=== PATIENT | male | born 1965 | race Caucasian/White ===

== ENCOUNTER 2022-05-24 09:06 | Emergency (ER) | payer MEDICAID ==
[~2022-05-24] VITALS: Ht 188 cm; Wt 111.8 kg
[~2022-05-24 09:06] MED LIST: CLIN300C33 PO; HYDR-3972 PO; NAPR-56 PO; VENL37.55 PO
[2022-05-24 09:09] VITALS: BP 171/101
[2022-05-24] MEDS ORDERED: ketorolac tromethamine 15mg/ml inj. IM ONE (10:15)
[2022-05-24] MEDS ORDERED: cyclobenzaprine 10mg tablet PO ONE (10:15)
[2022-05-24 10:34] LABS: CLARITY,URINE CLEAR (Clear); COLOR,URINE YELLOW (Yellow); GLUCOSE, URINE NEGATIVE (Neg); KETONES,URINE TRACE mg/dl (Neg); LEUKOCYTE ESTERASE ,URINE NEGATIVE (Neg); NITRITES, URINE NEGATIVE (Neg); OCCULT BLOOD,URINE NEGATIVE (Neg); PROTEIN,URINE NEGATIVE (Neg); UROBILINOGEN,URINE 0.2 E.U/dL (0.2-1.0)
[2022-05-24 10:36] LABS: UA COLLECTION TYPE CLN CATCH MIDSTREAM
[2022-05-24 10:51] LABS: HEMOGLOBIN 13.9 g/dl (14.0-17.9)
[2022-05-24 10:53] LABS: BASOPHILS # (AUTO) 0.1 X10'3 (0-0.2); BASOPHILS % (AUTO) 0.7 % (0-1); EOSINOPHILS # (AUTO) 0.4 X10'3 (0-0.9); EOSINOPHILS % (AUTO) 4.4 % (0-6); HEMATOCRIT 41.6 % (42.0-52.0); LYMPHOCYTES # (AUTO) 2.6 X10'3 (1.1-4.8); LYMPHOCYTES % (AUTO) 26.1 % (21-51); MEAN CORPUSCULAR HEMOGLOBIN 27.4 PG (27.0-31.0); MEAN CORPUSCULAR HGB CONC 33.3 g/dL (33.0-36.5); MEAN CORPUSCULAR VOLUME 82.4 FL (78-98); MEAN PLATELET VOLUME 6.9 FL (7.4-10.4); MONOCYTES # (AUTO) 1.2 X10'3 (0-0.9); MONOCYTES % (AUTO) 11.8 % (2-12); NEUTROPHILS # (AUTO) 5.6 X10'3 (1.8-7.7); PLATELET COUNT 276 X10'3 (140-440); RED BLOOD COUNT 5.05 X10'6 (4.70-6.10); RED CELL DISTRIBUTION WIDTH 15.4 % (11.5-14.5); WHITE BLOOD COUNT 9.8 X10'3 (4.5-11.0)
[2022-05-24 11:14] LABS: ALANINE AMINOTRANSFERASE 21 U/L (12-78); ALBUMIN 3.6 G/DL (3.4-5.0); ALKALINE PHOSPHATASE 72 IU/L (46-116); ANION GAP 9 (8-16); ASPARTATE AMINO TRANSFERASE 20 U/L (10-37); BILIRUBIN,TOTAL 0.4 MG/DL (0.1-1.0); BLOOD UREA NITROGEN 18 MG/DL (7-18); CALCIUM 8.5 MG/DL (8.5-10.1); CHLORIDE 103 MMOL/L (99-107); CREATININE 0.72 MG/DL (0.60-1.10); GLUCOSE 97 MG/DL (70-104); POTASSIUM 3.9 MMOL/L (3.5-5.1); SODIUM 139 MMOL/L (135-145); TOTAL PROTEIN 7.1 G/DL (6.4-8.2); eGFR > 90 ML/MIN
[2022-05-24] MEDS ORDERED: ORPH100T2 PO (11:46)
== END 2022-05-24 12:06 | disposition home or self-care (01) ==
LOC: ER 09:07
DX: M54.59 Other low back pain (principal); Z20.822 Contact with and (suspected) exposure to COVID-19; E86.0 Dehydration; M79.10 Myalgia, unspecified site; R53.83 Other fatigue
CPT/HCPCS: 36415; 80053; 81003; 85025; 87502; 87503; 87635; 96372; 99283; C9803; J1885

== ENCOUNTER 2022-06-15 16:10 | Emergency (ER) | payer MEDICAID ==
[~2022-06-15] VITALS: Ht 190.5 cm; Wt 129.1 kg
[~2022-06-15 16:10] MED LIST changes: +ORPH100T2 PO
[2022-06-15 17:04] VITALS: BP 134/94
== END 2022-06-15 21:45 | disposition left against medical advice (07) ==
LOC: ER 16:11
DX: F29 Unspecified psychosis not due to a substance or known physiological condition (principal); Z53.21 Procedure and treatment not carried out due to patient leaving prior to being seen by health care provider

== ENCOUNTER 2022-07-07 21:09 | Emergency (ER) | payer MEDICAID ==
[~2022-07-07] VITALS: Ht 190.5 cm; Wt 129.1 kg
[2022-07-08] MEDS ORDERED: erythromycin ophthalmic ointment 1gm tube LEFTEYE ONE (01:55)
[2022-07-08] MEDS ORDERED: ERYT1OIN6 LEFTEYE (02:04)
[2022-07-08 02:24] VITALS: BP 135/92
== END 2022-07-08 02:27 | disposition home or self-care (01) ==
LOC: ER 21:10
DX: M79.671 Pain in right foot (principal); M79.672 Pain in left foot; H10.32 Unspecified acute conjunctivitis, left eye; J44.9 Chronic obstructive pulmonary disease, unspecified
CPT/HCPCS: 99283

== ENCOUNTER 2022-07-23 21:09 | Emergency (ER) | payer MEDICAID ==
[~2022-07-23] VITALS: Ht 191.8 cm; Wt 122.7 kg
[~2022-07-23 21:09] MED LIST changes: +ERYT1OIN6 LEFTEYE
[2022-07-23 21:30] VITALS: BP 153/84
[2022-07-23] MEDS ORDERED: SULF1TAB45 PO (22:49)
== END 2022-07-23 23:11 | disposition home or self-care (01) ==
LOC: ER 21:10
DX: B99.8 Other infectious disease (principal); L53.8 Other specified erythematous conditions
CPT/HCPCS: 99283

== ENCOUNTER 2022-10-03 19:17 | Emergency (ER) | payer MEDICAID ==
[~2022-10-03] VITALS: Ht 190.5 cm; Wt 112.7 kg
[~2022-10-03 19:17] MED LIST changes: -ERYT1OIN6 LEFTEYE
--- NOTE | 2022-10-03 21:41 | NUR ---
CHARGE NURSE AWARE OF GENERAL ASSESSMENT NEEDED.
[2022-10-03 21:55] VITALS: BP 130/82
== END 2022-10-03 22:09 | disposition home or self-care (01) ==
LOC: ER 19:18
DX: F10.920 Alcohol use, unspecified with intoxication, uncomplicated (principal); F32.A Depression, unspecified; Z59.00 Homelessness unspecified; J44.9 Chronic obstructive pulmonary disease, unspecified; Y90.9 Presence of alcohol in blood, level not specified
CPT/HCPCS: 99283

== ENCOUNTER 2022-10-16 11:52 | Emergency (ER) | payer MEDICAID ==
[~2022-10-16] VITALS: Ht 190.5 cm; Wt 109.1 kg
[~2022-10-16 11:52] MED LIST changes: -ORPH100T2 PO; +ORPH100T4 PO
[2022-10-16 12:18] VITALS: BP 127/91
== END 2022-10-16 15:03 | disposition left against medical advice (07) ==
LOC: ER 11:53
DX: S81.001A Unspecified open wound, right knee, initial encounter (principal); Z53.21 Procedure and treatment not carried out due to patient leaving prior to being seen by health care provider; R19.7 Diarrhea, unspecified; R53.83 Other fatigue; X58.XXXA Exposure to other specified factors, initial encounter; Y93.89 Activity, other specified; Y92.89 Other specified places as the place of occurrence of the external cause; Y99.8 Other external cause status
CPT/HCPCS: 93005; 99281

== ENCOUNTER 2023-02-15 16:49 | Emergency (ER) | payer MEDICAID ==
[~2023-02-15] VITALS: Ht 190.5 cm; Wt 99.4 kg
[2023-02-15 17:21] VITALS: BP 126/86; PULSE 95; RESP 18; TEMP 98.4; O2SAT 98
[2023-02-15] MEDS ORDERED: amoxicillin 250mg capsule PO ONE (18:30)
[2023-02-15] MEDS ORDERED: AMOX-101 PO (18:40)
== END 2023-02-15 19:10 | disposition home or self-care (01) ==
LOC: ER 16:50
DX: K08.89 Other specified disorders of teeth and supporting structures (principal); I10 Essential (primary) hypertension; F32.A Depression, unspecified; Z86.19 Personal history of other infectious and parasitic diseases; Z72.89 Other problems related to lifestyle; Z79.2 Long term (current) use of antibiotics; Z79.899 Other long term (current) drug therapy; Z98.818 Other dental procedure status
CPT/HCPCS: 99283; 99284

== ENCOUNTER 2023-12-03 09:27 | Inpatient (IN) | payer MEDICAID ==
[~2023-12-03] VITALS: Ht 191.8 cm; Wt 99.1 kg
[~2023-12-03 09:27] MED LIST changes: -CLIN300C33 PO; -VENL37.55 PO; +VENL37.58 PO; +[UNRECOGNIZED DRUG - CODE] PO
[2023-12-03 11:26] LABS: BASOPHILS # (AUTO) 0.1 X10'3 (0-0.2); BASOPHILS % (AUTO) 1.1 % (0-1); EOSINOPHILS # (AUTO) 0.2 X10'3 (0-0.9); EOSINOPHILS % (AUTO) 1.9 % (0-6); HEMATOCRIT 44.6 % (42.0-52.0); HEMOGLOBIN 14.6 g/dl (14.0-17.9); LYMPHOCYTES # (AUTO) 2.3 X10'3 (1.1-4.8); LYMPHOCYTES % (AUTO) 26.5 % (21-51); MEAN CORPUSCULAR HGB CONC 32.8 g/dL (33.0-36.5); MEAN CORPUSCULAR VOLUME 85.3 FL (78-98); MONOCYTES # (AUTO) 1.1 X10'3 (0-0.9); MONOCYTES % (AUTO) 12.3 % (2-12); NEUTROPHILS # (AUTO) 5.1 X10'3 (1.8-7.7); NEUTROPHILS % (AUTO) 58.2 % (42-75); PLATELET COUNT 342 X10'3 (140-440); RED BLOOD COUNT 5.23 X10'6 (4.70-6.10); RED CELL DISTRIBUTION WIDTH 15.7 % (11.5-14.5); WHITE BLOOD COUNT 8.7 X10'3 (4.5-11.0)
[2023-12-03 11:55] LABS: ALANINE AMINOTRANSFERASE 13 U/L (12-78); ALBUMIN 3.7 G/DL (3.4-5.0); ALBUMIN/GLOBULIN RATIO 0.9 (1.1-1.5); ALKALINE PHOSPHATASE 78 IU/L (46-116); ANION GAP 7 (8-16); ASPARTATE AMINO TRANSFERASE 17 U/L (10-37); BILIRUBIN,TOTAL 0.3 MG/DL (0.1-1.0); BLOOD UREA NITROGEN 16 MG/DL (7-18); BUN/CREATININE RATIO 25.4 (10.0-20.0); CHLORIDE 97 MMOL/L (99-107); CREATININE 0.63 MG/DL (0.60-1.10); GLUCOSE 103 MG/DL (70-104); POTASSIUM 4.2 MMOL/L (3.5-5.1); SODIUM 132 MMOL/L (135-145); TOTAL CARBON DIOXIDE 27.6 MMOL/L (24-32); TOTAL PROTEIN 7.9 G/DL (6.4-8.2); eCRCL 150 ML/MIN; eGFR > 90 ML/MIN
[2023-12-03] MEDS: morphine 2 MG/ML inj. syringe IV PRN ×2 (13:08→18:00)
[2023-12-03] MEDS ORDERED: magnesium hydroxide 30ml (MOM) UD suspension PO PRN (14:45)
[2023-12-03] MEDS ORDERED: acetaminophen 325mg tablet PO PRN (14:45)
[2023-12-03] MEDS ORDERED: ondansetron/PF 4mg/2ml inj IV PRN (14:45)
[2023-12-03] MEDS ORDERED: morphine 2 MG/ML inj. syringe IV PRN (14:45)
[2023-12-03 15:31] LABS: C-REACTIVE PROTEIN 0.06 MG/DL (0.0-0.5)
[2023-12-03] MEDS: CefTRIAXone 2gm/D5W 50ml BAG 50 ML IV ONE (15:52)
[2023-12-03] MEDS ORDERED: iohexol 300mg/ml 100ml inj. ONE (15:55)
[2023-12-03] MEDS ORDERED: vancomycin/NS 1 GM ADD-VANTAGE 250 ML IV SCH (16:00)
[2023-12-03 16:35] LABS: BILIRUBIN,URINE NEGATIVE (Neg); CLARITY,URINE CLEAR (Clear); COLOR,URINE YELLOW (Yellow); GLUCOSE, URINE NEGATIVE (Neg); KETONES,URINE NEGATIVE (Neg); LEUKOCYTE ESTERASE ,URINE NEGATIVE (Neg); NITRITES, URINE NEGATIVE (Neg); OCCULT BLOOD,URINE NEGATIVE (Neg); PROTEIN,URINE NEGATIVE (Neg); UROBILINOGEN,URINE 0.2 E.U/dL (0.2-1.0)
[2023-12-03 16:37] LABS: URINE AMPHETAMINE SCREEN NEGATIVE (Neg); URINE BARBITUATE SCREEN NEGATIVE (Neg); URINE BENZODIAZEPINES SCREEN NEGATIVE (Neg); URINE CANNABINOID SCREEN NEGATIVE (Neg); URINE COCAINE SCREEN NEGATIVE (Neg); URINE METHADONE SCREEN NEGATIVE (Neg); URINE OPIATE SCREEN NEGATIVE (Neg); URINE PHENCYCLIDINE SCREEN NEGATIVE (Neg)
[2023-12-03 16:42] LABS: UA COLLECTION TYPE URINAL
[2023-12-03] MEDS ORDERED: VANCOmycin 2,000MG in NS 500ml IV soln IV ONE ×2 (17:00→18:00)
[2023-12-03] MEDS: metroNIDAZOLE-Flagyl 500mg/NS 100 ML IV ONE (17:12)
[2023-12-03] MEDS: VANCOMYCIN LEVEL IV ONE (17:46)
[2023-12-03] MEDS: VANCOmycin 2,000MG in NS 500ml IV soln IV ONE (19:34)
[2023-12-03] MEDS: docusate sod 100mg capsule PO SCH (19:35)
[2023-12-03] MEDS ORDERED: ALPRAZolam 0.25mg tablet PO ONE (20:00)
[2023-12-03] MEDS: ALPRAZolam 0.5mg tablet PO ONE (20:38)
[2023-12-03] MEDS: HYDROcodone/acetaminophen 10/325mg tab PO PRN (20:42)
[2023-12-03 22:40] VITALS: BP 169/97; PULSE 79; RESP 18; TEMP 97.7; O2SAT 99
[2023-12-03 23:00] VITALS: BP 144/102; PULSE 80
[2023-12-03] MEDS: metroNIDAZOLE 500mg tablet PO SCH (23:26)
[2023-12-03 23:30] VITALS: RESP 18; O2SAT 99
[2023-12-04] MEDS: HYDROcodone/acetaminophen 5mg/325mg tablet PO PRN (04:43)
[2023-12-04 06:48] VITALS: BP 146/100; PULSE 82; RESP 14; TEMP 98.3; O2SAT 95
[2023-12-04] MEDS: CefTRIAXone 2gm/D5W 50ml BAG 50 ML IV SCH (07:48)
[2023-12-04] MEDS: enoxaparin 40mg/0.4ml syringe SUBCUT SCH (07:48)
[2023-12-04 08:01] LABS: BASOPHILS # (AUTO) 0.1 X10'3 (0-0.2); BASOPHILS % (AUTO) 0.9 % (0-1); EOSINOPHILS # (AUTO) 0.3 X10'3 (0-0.9); EOSINOPHILS % (AUTO) 3.6 % (0-6); HEMATOCRIT 43.4 % (42.0-52.0); HEMOGLOBIN 14.4 g/dl (14.0-17.9); LYMPHOCYTES # (AUTO) 1.9 X10'3 (1.1-4.8); LYMPHOCYTES % (AUTO) 22.9 % (21-51); MEAN CORPUSCULAR HEMOGLOBIN 28.6 PG (27.0-31.0); MEAN CORPUSCULAR HGB CONC 33.1 g/dL (33.0-36.5); MEAN CORPUSCULAR VOLUME 86.4 FL (78-98); MONOCYTES % (AUTO) 11.9 % (2-12); NEUTROPHILS # (AUTO) 5.1 X10'3 (1.8-7.7); NEUTROPHILS % (AUTO) 60.7 % (42-75); PLATELET COUNT 286 X10'3 (140-440); RED BLOOD COUNT 5.02 X10'6 (4.70-6.10); WHITE BLOOD COUNT 8.5 X10'3 (4.5-11.0)
[2023-12-04 08:28] LABS: ALBUMIN 3.2 G/DL (3.4-5.0); ANION GAP 8 (8-16); BLOOD UREA NITROGEN 14 MG/DL (7-18); BUN/CREATININE RATIO 26.9 (10.0-20.0); CALCIUM 8.9 MG/DL (8.5-10.1); CHLORIDE 104 MMOL/L (99-107); CREATININE 0.52 MG/DL (0.60-1.10); GLUCOSE 101 MG/DL (70-104); MAGNESIUM 1.9 MG/DL (1.5-2.4); POTASSIUM 4.3 MMOL/L (3.5-5.1); SODIUM 136 MMOL/L (135-145); TOTAL CARBON DIOXIDE 24.4 MMOL/L (24-32); eCRCL 192 ML/MIN; eGFR > 90 ML/MIN
[2023-12-04] MEDS: vancomycin/NS 1 GM ADD-VANTAGE 250 ML IV SCH (09:56)
[2023-12-04 11:00] VITALS: BP 140/100; PULSE 82; RESP 18; TEMP 98.3; O2SAT 98
[2023-12-04] MEDS: LORazepam 0.5 MG tablet PO PRN (13:05)
[2023-12-04] MEDS: losartan 25mg tablet PO ONE (17:22)
[2023-12-04 18:00] VITALS: BP 152/106; PULSE 80; RESP 15; TEMP 96.9; O2SAT 97
[2023-12-04] MEDS: VANCOMYCIN LEVEL IV ONE (19:19)
[2023-12-04 20:00] VITALS: RESP 16; O2SAT 97
[2023-12-04 22:00] VITALS: BP 136/90; PULSE 100; RESP 18; TEMP 98.8; O2SAT 99
[2023-12-05 05:00] VITALS: BP 125/96; PULSE 94; RESP 18; TEMP 97.8; O2SAT 98
[2023-12-05 07:28] LABS: BASOPHILS # (AUTO) 0.1 X10'3 (0-0.2); BASOPHILS % (AUTO) 0.9 % (0-1); EOSINOPHILS # (AUTO) 0.4 X10'3 (0-0.9); LYMPHOCYTES # (AUTO) 1.5 X10'3 (1.1-4.8); LYMPHOCYTES % (AUTO) 18.9 % (21-51); MEAN CORPUSCULAR HEMOGLOBIN 28.6 PG (27.0-31.0); MEAN CORPUSCULAR HGB CONC 33.2 g/dL (33.0-36.5); MEAN CORPUSCULAR VOLUME 86.2 FL (78-98); MONOCYTES % (AUTO) 12.3 % (2-12); NEUTROPHILS % (AUTO) 62.9 % (42-75); PLATELET COUNT 279 X10'3 (140-440); RED BLOOD COUNT 5.22 X10'6 (4.70-6.10); RED CELL DISTRIBUTION WIDTH 15.6 % (11.5-14.5); WHITE BLOOD COUNT 7.9 X10'3 (4.5-11.0)
[2023-12-05] MEDS: losartan 25mg tablet PO SCH (07:37)
[2023-12-05 07:43] LABS: ALBUMIN 3.3 G/DL (3.4-5.0); ANION GAP 6 (8-16); BLOOD UREA NITROGEN 13 MG/DL (7-18); BUN/CREATININE RATIO 23.2 (10.0-20.0); CALCIUM 8.9 MG/DL (8.5-10.1); CHLORIDE 102 MMOL/L (99-107); CREATININE 0.56 MG/DL (0.60-1.10); GLUCOSE 99 MG/DL (70-104); MAGNESIUM 1.9 MG/DL (1.5-2.4); POTASSIUM 4.4 MMOL/L (3.5-5.1); SODIUM 135 MMOL/L (135-145); TOTAL CARBON DIOXIDE 27.4 MMOL/L (24-32); eCRCL 178 ML/MIN; eGFR > 90 ML/MIN
[2023-12-05 09:00] VITALS: RESP 18; O2SAT 99
[2023-12-05 10:00] VITALS: BP 141/89; PULSE 81; RESP 18; TEMP 97.9; O2SAT 96
[2023-12-05] MEDS ORDERED: hydrOXYzine 25 MG tablet PO PRN (10:20)
[2023-12-05 16:12] LABS: HBSAG SCREEN Negative (Negative); HEP B CORE AB, IGM Negative (Negative); HEP B CORE AB, TOT Negative (Negative); HEPATITIS C VIRUS ANTIBODY Reactive (Non Reactive)
[2023-12-05 17:07] VITALS: RESP 17
[2023-12-06] MEDS ORDERED: ESCITALOPRAM 10 mg tablet 10 MG TABLET PO SCH (08:00)
== END 2023-12-05 18:40 | DRG 344 ==
LOC: ER 09:27 → ED HOLD 14:49 → ORTHO 4S 22:30
PROVIDERS: ADMIT Internal Medicine; ATTEND Internal Medicine
DX: M86.8X7 Other osteomyelitis, ankle and foot (principal); S91.301A Unspecified open wound, right foot, initial encounter; L03.031 Cellulitis of right toe; G40.909 Epilepsy, unspecified, not intractable, without status epilepticus; F32.A Depression, unspecified; I10 Essential (primary) hypertension; J44.9 Chronic obstructive pulmonary disease, unspecified; F15.10 Other stimulant abuse, uncomplicated; X58.XXXA Exposure to other specified factors, initial encounter; Y93.89 Activity, other specified; Y92.89 Other specified places as the place of occurrence of the external cause; Y99.8 Other external cause status; Z59.00 Homelessness unspecified
CPT/HCPCS: 36415; 71045; 73620; 73701; 76942; 80048; 80053; 80202; 80305; 81003; 83605; 83735; 84145; 85025; 85651; 86140; 86704; 86705; 86803; 87040; 87081; 87340; 87522; 97116; 97161; 97530; 99285; A4649; A6446; A6449; C1751; G0378; J0696; J1650; J2270; J3370; J3490; J7040; Q9967